=== PATIENT | female | born 1995 ===

== ENCOUNTER 2020-12-23 19:18 | Emergency (ER) | payer MEDICAID ==
[2020-12-23] MEDS ORDERED: ONDANSETRON 4 MG ODT TAB PO ONE (20:59)
--- NOTE | 2020-12-23 21:10 | Event Note ---
ED Screening Note Date of service: 12/23/20 Time: 21:09 ED Screening Note: Patient 25-year-old morbidly obese female who presents for epigastric pain times today with nausea vomiting diarrhea. Patient states diagnosed Covid +10 days ago. Denies shortness of breath there is no cough no fever no shortness of breath. Symptoms are exacerbated by p.o. intake. Symptoms are relieved by nothing tried. Pain is described as 5/10 spasms. Last menstrual cycle 3 weeks ago. Patient denies a history of GERD or abdominal concerns. This initial assessment/diagnostic orders/clinical plan/treatment(s) is/are subject to change based on patients health status, clinical progression and re- assessment by fellow clinical providers in the ED. Further treatment and workup at subsequent clinical providers discretion. Patient/guardian urged not to elope from the ED as their condition may be serious if not clinically assessed and managed. Initial orders include: cmp, cbc, lipase, ua , hcg
[2020-12-23 21:25] LABS: Basophils # (Auto) 0.1 K/mm3 (0.0-0.1); Basophils % (Auto) 0.8 % (0.0-1.8); Eosinophils % (Auto) 0.2 % (0.0-4.3); Hemoglobin 13.1 gm/dl (10.1-14.3); Lymphocytes # (Auto) 2.1 K/mm3 (1.2-5.4); Lymphocytes % (Auto) 26.4 % (13.4-35.0); Mean Corpuscular HGB Conc 33 % (30-34); Mean Corpuscular Volume 87 fl (79-97); Monocytes # (Auto) 0.4 K/mm3 (0.0-0.8); Monocytes % (Auto) 4.9 % (0.0-7.3); Platelet Count 238 K/mm3 (140-440); Red Blood Count 4.62 M/mm3 (3.65-5.03)
[2020-12-23 21:27] VITALS: BP 173/112
[2020-12-23 21:41] LABS: Alanine Aminotransferase 23 units/L (7-56); Albumin 4.3 g/dL (3.9-5); Blood Urea Nitrogen 8 mg/dL (7-17); Calcium 9.6 mg/dL (8.4-10.2); Hemolysis Index 11
[2020-12-23 21:48] LABS: BUN/Creatinine Ratio 13
== END 2020-12-24 00:10 | disposition left against medical advice (07) ==
LOC: ED 19:18
DX: R10.13 Epigastric pain (principal); Z53.21 Procedure and treatment not carried out due to patient leaving prior to being seen by health care provider
CPT/HCPCS: 36415; 80053; 83690; 83735; 85025; Q0162